=== PATIENT | female | born 2000 | race Two or more races ===

== ENCOUNTER 2023-02-02 17:25 | Emergency (ER) | payer MEDICAID, OTHER ==
[~2023-02-02] VITALS: Ht 167.6 cm; Wt 190.0 kg
[2023-02-02 17:51] VITALS: BP 135/83; PULSE 74; RESP 18; TEMP 98; O2SAT 100
== END 2023-02-02 19:51 | disposition home or self-care (01) ==
LOC: EDBD 17:25 → ER 17:25
DX: F41.0 Panic disorder [episodic paroxysmal anxiety] (principal); F41.9 Anxiety disorder, unspecified

== ENCOUNTER 2023-09-17 17:53 | Emergency (ER) | payer MEDICAID, OTHER ==
[~2023-09-17] VITALS: Ht 167.6 cm; Wt 118.2 kg
[2023-09-17 18:42] VITALS: BP 113/67; PULSE 92; RESP 18; TEMP 99.3; O2SAT 98
[2023-09-17] MEDS: KETOROLAC TROMETH 60MG/2ML VIAL IM ONE (19:06)
[2023-09-17 19:53] LABS: Urine Bacteria NONE SEEN /hpf (None Seen); Urine Blood Negative /uL (Negative); Urine Clarity HAZY (Clear); Urine Color Colorless (Yellow); Urine Mucus FEW (None Seen); Urine Protein, UAD 1+ (Negative); Urine Specific Gravity 1.015 (1.001-1.035); Urine Urobilinogen Normal (Negative); Urine WBC 12 /hpf (0 - 5)
[2023-09-17] MEDS: CYCLOBENZAPRINE HCL 10 MG TAB PO ONE (20:41)
[2023-09-17] MEDS ORDERED: CYCL-839 PO (20:55)
[2023-09-17] MEDS ORDERED: IBUP-1455 PO (20:55)
== END 2023-09-17 21:04 | disposition home or self-care (01) ==
LOC: ER 17:53
DX: M25.512 Pain in left shoulder (principal); F41.9 Anxiety disorder, unspecified; V98.8XXA Other specified transport accidents, initial encounter; Y93.I9 Activity, other involving external motion; Y92.89 Other specified places as the place of occurrence of the external cause; Y99.8 Other external cause status
CPT/HCPCS: 73000; 73030; 81001; 81025; 96372; 99284; J1885

== ENCOUNTER 2024-05-08 08:20 | Emergency (ER) | payer OTHER ==
[~2024-05-08] VITALS: Ht 154.9 cm; Wt 108.7 kg
[~2024-05-08 08:20] MED LIST: CYCL-839 PO; IBUP-1455 PO
[2024-05-08] MEDS ORDERED: AMOX500C2 PO (08:36)
[2024-05-08] MEDS ORDERED: CLIN1CAP70 PO (08:36)
[2024-05-08] MEDS ORDERED: GENT0.3S10 LEFTEYE (08:36)
[2024-05-08 08:41] VITALS: BP 128/87; PULSE 75; RESP 20; TEMP 97.4; O2SAT 98
[2024-05-08] MEDS: cefTRIAXone SOD 1,000 MG VL IM ONE (08:44)
== END 2024-05-08 08:51 | disposition home or self-care (01) ==
LOC: ER 08:20
DX: H10.32 Unspecified acute conjunctivitis, left eye (principal)
CPT/HCPCS: 96372; 99283; J0696